=== PATIENT | female | born 2000 | race African-American/Black ===

== ENCOUNTER 2018-08-09 13:18 | Emergency (ER) | payer OTHER ==
[2018-08-09 13:32] VITALS: BP 119/70; PULSE 76; TEMP 98.3; BMI 20.1
--- NOTE | 2018-08-09 14:14 | PDOC ---
History of Present Illness - General Chief Complaint: Pain Stated Complaint: NECK PAIN Time Seen by Provider: 08/09/18 13:56 History Source: Patient Exam Limitations: No Limitations - History of Present Illness Initial Comments: 08/09/18 14:19 c/o "bump" to scalp noticed yesterday. denies trauma states after she got her hair done she felt a lump. no pmhx. Past History - Past Medical History Allergies/Adverse Reactions: Allergies Allergy/AdvReac Type Severity Reaction Status Date / Time No Known Allergies Allergy Verified 02/02/18 18:34 Home Medications: Ambulatory Orders Cholecalciferol (Vitamin D3) [Vitamin D3] 2,000 unit PO DAILY 08/09/18 Asthma: Yes - Immunization History Immunization Up to Date: Yes - Suicide/Smoking/Psychosocial Hx Smoking Status: No Smoking History: Never smoked Number of Cigarettes Smoked Daily: 0 Drug/Substance Use Hx: Yes (MARIJUANA SOMETIMES) *Physical Exam - Vital Signs Last Vital Signs Temp Pulse Resp BP Pulse Ox 98.3 F 76 17 119/70 100 08/09/18 13:30 08/09/18 13:30 08/09/18 13:30 08/09/18 13:30 08/09/18 13:30 - Physical Exam General Appearance: Yes: Nourished, Appropriately Dressed HEENT: positive: EOMI, KRISTAL Neck: positive: Supple. negative: Lymphadenopathy (R), Lymphadenopathy (L) Extremity: positive: Normal Capillary Refill, Normal Inspection, Normal Range of Motion Integumentary: positive: Normal Color, Dry, Warm, Other (posterior scalp with superficial soft tissue mobile slightly tender area no redness no drainage approximately 0.5cm ) Neurologic: positive: Fully Oriented, Alert, Normal Mood/Affect, Normal Response , Motor Strength 5/5 Medical Decision Making - Medical Decision Making 08/09/18 14:22 cc: soft tissue tender mobile lump under the scalp skin no redness no drainage will refer to derm discussed with her mother on the phone who understands the plan of care *DC/Admit/Observation/Transfer Diagnosis at time of Disposition: Sebaceous cyst - Discharge Dispostion Disposition: HOME Condition at time of disposition: Good - Referrals Referrals: Carlene Moseley MD [Primary Care Provider] - Carolina Welch MD [Staff Physician] - - Patient Instructions Additional Instructions: apply cool compresses every 2hrs for 15 minutes to the area of swelling take tylenol as needed follow with the ramp service agent if any worsening symptoms return to ER or see the ramp service agent or your president educational institution - Post Discharge Activity
== END 2018-08-09 14:27 | disposition home or self-care (01) ==
LOC: JERFT 13:18
DX: L72.3 Sebaceous cyst (principal)
CPT/HCPCS: 99281-25

== ENCOUNTER 2018-09-14 04:12 | Emergency (ER) | payer OTHER ==
[2018-09-14] MEDS ORDERED: ACETAMINOPHEN 1000 MG/100 ML VIAL (NON FORMULARY) IVPB ONE (04:49)
--- NOTE | 2018-09-14 04:58 | PDOC ---
History of Present Illness - General Chief Complaint: Pain Stated Complaint: ABDOMINAL PAIN.CONSTIPATION Time Seen by Provider: 09/14/18 04:39 History Source: Patient Exam Limitations: Clinical Condition - History of Present Illness Initial Comments: 09/14/18 04:52 Patient with history of chronic constipation for 5 months which has been intermittent of present with complain of worsening epigastric and right upper quadrant pain radiating to right flank area for 3 days now. Patient reported seeing PCP few days ago and was told she has constipation was ordered sonogram for next week with advice to increase fluid intake but could not wait due to increased pain. And also report urinary frequency and dysuria. Patient denies fever, chills, nausea, vomiting or diarrhea. Patient denies any other symptoms. Patient has not taken anything for her symptoms. 09/14/18 04:58 Timing/Duration: other (5 months) Past History - Past Medical History Allergies/Adverse Reactions: Allergies Allergy/AdvReac Type Severity Reaction Status Date / Time No Known Allergies Allergy Verified 02/02/18 18:34 Home Medications: Ambulatory Orders Cholecalciferol (Vitamin D3) [Vitamin D3] 2,000 unit PO DAILY 08/09/18 Docusate Sodium [Colace] 100 mg PO BID PRN #20 capsule 09/14/18 Polyethylene Glycol 3350 [Miralax (For Bowel Prep) -] 17 gm PO DAILY #1 bottle 09/14/18 Asthma: Yes COPD: No - Immunization History Immunization Up to Date: Yes - Suicide/Smoking/Psychosocial Hx Smoking Status: No Smoking History: Never smoked Number of Cigarettes Smoked Daily: 0 Drug/Substance Use Hx: Yes (MARIJUANA SOMETIMES) Review of Systems - Review of Systems Able to Perform ROS?: Yes Is the patient limited Czech proficient: No Constitutional: No: Chills, Fever Respiratory: No: Symptoms reported Cardiac (ROS): No: Symptoms Reported ABD/GI: Yes: See HPI, Abd. Pain w/ defecation, Blood Streaked Bowels, Constipated, Abdominal cramping (epigastric and RUQ). No: Abdominal Distended, Diarrhea, Difficulty Swallowing, Nausea, Poor Appetite, Rectal Bleeding, Vomiting, Indigestion : Yes: Dysuria, Frequency, Flank Pain (right flank). No: Burning, Hematuria, Urgency All Other Systems: Reviewed and Negative *Physical Exam - Vital Signs Last Vital Signs Temp Pulse Resp BP Pulse Ox 98.5 F 62 18 132/97 99 09/14/18 04:20 09/14/18 04:20 09/14/18 04:20 09/14/18 04:20 09/14/18 04:20 - Physical Exam Comments: 09/14/18 04:55 GENERAL: Well developed, well nourished. Awake and alert. No acute distress. HEENT: Normocephalic, atraumatic. PERRLA, EOMI. No conjunctival pallor. Sclera are non- icteric. Moist mucous membranes. Oropharynx is clear. NECK: Supple. Full ROM. No JVD. Carotid pulses 2+ and symmetric, without bruits. No thyromegaly. No lymphadenopathy. CARDIOVASCULAR: Regular rate and rhythm. No murmurs, rubs, or gallops. Distal pulses are 2+ and symmetric. PULMONARY: No evidence of respiratory distress. Lungs clear to auscultation bilaterally. No wheezing, rales or rhonchi. ABDOMINAL: Moderate tenderness to epigastric and right upper quadrant area.Soft. Non-distended. No rebound or guarding. No organomegaly. Normoactive bowel sounds. MUSCULOSKELETAL Normal range of motion at all joints. No bony deformities or tenderness. No CVA tenderness. EXTREMITIES: No cyanosis. No clubbing. No edema. No calf tenderness. SKIN: Warm and dry. Normal capillary refill. No rashes. No jaundice. NEUROLOGICAL: Alert, awake, appropriate. Gait is normal without ataxia. PSYCHIATRIC: Cooperative. Good eye contact. Appropriate mood and affect. General Appearance: Yes: Nourished, Appropriately Dressed. No: Apparent Distress ED Treatment Course - LABORATORY CBC & Chemistry Diagram: 09/14/18 05:00 09/14/18 04:46 Medical Decision Making - Medical Decision Making 09/14/18 04:57 Patient with history of chronic constipation present with complain of epigastric and right upper quadrant pain radiating to right flank area for over 5 months which has been worsened in last few days with no nausea ,vomiting or fever. Exam significant for moderate epigastric and right upper quadrant tenderness without rebound or guarding. CBC, CMP labs ordered. UA urine culture ordered. Urine hCG ordered. Abdominal CT with contrast ordered to rule out acute cholecystitis and pancreatitis. IV Tylenol 1 g given for pain. Treat based on imaging lab results 10/26/18 06:03 CBC, CMP with no acute pathology. UA, Uhcg still pending. CT after Uhcg results. Iv tylenol and maalox given for abdominal pain and report improvement. dispo home on miralax and colace for constipation if neg CT scan *DC/Admit/Observation/Transfer Diagnosis at time of Disposition: Constipated Qualifiers: Constipation type: chronic idiopathic constipation Qualified Code(s): K59.04 - Chronic idiopathic constipation Abdominal pain Qualifiers: Abdominal location: epigastric Qualified Code(s): R10.13 - Epigastric pain - Discharge Dispostion Disposition: HOME Condition at time of disposition: Stable Decision to Admit order: No - Prescriptions Prescriptions: Docusate Sodium [Colace] 100 mg PO BID PRN #20 capsule PRN Reason: Constipation Polyethylene Glycol 3350 [Miralax (For Bowel Prep) -] 17 gm PO DAILY #1 bottle - Referrals Referrals: Carlene Moseley MD [Primary Care Provider] - Sae Hester MD [Staff Physician] - - Patient Instructions Printed Discharge Instructions: Constipation, Increased Dietary Fiber May Improve Constipation Conditions With Pelvic Doug Additional Instructions: Your labs CT and ultrasound were unremarkable here You will need further evaluation by a GI doc for your chronic constipation Please follow up with Dr. Hester next week. In the meantime, increase fiber and water in your diet and take over-the- counter milk of magnesia as needed - Post Discharge Activity
[2018-09-14] MEDS ORDERED: MAG HYDROX/AL HYDROX/SIMETH 30 ML UNIT-DOSE CUP PO ONE (05:01)
[2018-09-14 05:18] LABS: BASO % 0.6 % (0-2.0); EOS % 2.1 % (0-4.5); HEMATOCRIT 40.3 % (32.4-45.2); HEMOGLOBIN 13.3 GM/dL (10.7-15.3); LYMPH % 30.9 % (8-40); MCH 29.1 pg (25.7-33.7); MEAN CELL VOLUME 88.2 fl (80-96); MEAN PLT VOLUME 10.2 fl (7.5-11.1); MONO % 8.4 % (3.8-10.2); PLATELET COUNT 138 K/MM3 (134-434); RBC 4.57 M/mm3 (3.60-5.2); RDW 13.7 % (11.6-15.6); WHITE BLOOD COUNT 5.6 K/mm3 (4.0-10.0)
--- NOTE | 2018-09-14 05:20 | PDOC ---
*Physical Exam - Vital Signs Last Vital Signs Temp Pulse Resp BP Pulse Ox 98.5 F 62 18 132/97 99 09/14/18 04:20 09/14/18 04:20 09/14/18 04:20 09/14/18 04:20 09/14/18 04:20 ED Treatment Course - LABORATORY CBC & Chemistry Diagram: 09/14/18 05:00 09/14/18 04:46 Medical Decision Making - Medical Decision Making 09/14/18 05:17 17 yo F h/o chronic constipation She presents to the ER with worsening abdominal pain (abd pain began several months ago) No fevers or chills (+) constipation On exam: epigastric and LUQ tenderness No lower abdominal tenderness Will do Labs CT Reassess Pt seen by Midlevel Provider under my direct supervision I agree with plan as outlined by Midlevel Provider *DC/Admit/Observation/Transfer Diagnosis at time of Disposition: Constipated, Abdominal pain - Discharge Dispostion Disposition: HOME Condition at time of disposition: Stable - Prescriptions Prescriptions: Docusate Sodium [Colace] 100 mg PO BID PRN #20 capsule PRN Reason: Constipation Polyethylene Glycol 3350 [Miralax (For Bowel Prep) -] 17 gm PO DAILY #1 bottle - Referrals Referrals: Carlene Moseley MD [Primary Care Provider] - Sae Hester MD [Staff Physician] - - Patient Instructions Printed Discharge Instructions: Constipation, Increased Dietary Fiber May Improve Constipation Conditions With Pelvic Doug Additional Instructions: Your laabs CT and ultrasound were unremarkable here You will need further evaluation by a GI doc for your chronic constipation Please follow up with Dr. Hester next week. In the meantime, increase fiber and water in your diet and take over-the- counter milk of magnesia as needed - Post Discharge Activity
[2018-09-14] MEDS ORDERED: ACETAMINOPHEN INJECTION 100 ML IVPB ONE (05:21)
[2018-09-14] MEDS ORDERED: MAG HYDROX/AL HYDROX/SIMETH 30 ML UNIT-DOSE CUP ONE (05:26)
[2018-09-14 05:47] LABS: ALBUMIN 4.1 g/dl (3.4-5.0); ALK PHOS 57 U/L (45-117); ANION GAP 8 MMOL/L (8-16); BILIRUBIN,TOTAL 0.6 mg/dL (0.2-1); BLOOD UREA NITROGEN 10 mg/dL (7-18); CALCIUM 8.4 mg/dL (8.5-10.1); CHLORIDE 108 mmol/L (98-107); CO2 27 mmol/L (21-32); CREATININE 0.7 mg/dL (0.55-1.3); GLUCOSE,RANDOM 78 mg/dL (74-106); POTASSIUM 3.9 mmol/L (3.5-5.1); SGOT/AST 10 U/L (15-37); SGPT/ALT 18 U/L (13-61); SODIUM 143 mmol/L (136-145); TOT PROT 7.3 g/dl (6.4-8.2)
--- NOTE | 2018-09-14 08:25 | PDOC ---
*Physical Exam - Vital Signs Last Vital Signs Temp Pulse Resp BP Pulse Ox 98.9 F 60 18 106/63 98 09/14/18 06:47 09/14/18 06:47 09/14/18 06:47 09/14/18 06:47 09/14/18 06:47 - Physical Exam General Appearance: Yes: Appropriately Dressed. No: Apparent Distress HEENT: positive: Normal Voice Neck: positive: Supple Respiratory/Chest: negative: Respiratory Distress Gastrointestinal/Abdominal: positive: Normal Bowel Sounds, Soft. negative: Tender, Distended, Guarding Integumentary: positive: Dry, Warm Neurologic: positive: Fully Oriented, Alert, Normal Mood/Affect ED Treatment Course - LABORATORY CBC & Chemistry Diagram: 09/14/18 05:00 09/14/18 04:46 - ADDITIONAL ORDERS Additional order review: Laboratory Results 09/14/18 04:46 Sodium 143 Potassium 3.9 Chloride 108 H Carbon Dioxide 27 Anion Gap 8 BUN 10 Creatinine 0.7 Creat Clearance w eGFR > 60 Random Glucose 78 Calcium 8.4 L Total Bilirubin 0.6 AST 10 L ALT 18 Alkaline Phosphatase 57 Total Protein 7.3 Albumin 4.1 09/14/18 05:00 RBC 4.57 MCV 88.2 MCHC 33.0 RDW 13.7 MPV 10.2 Neutrophils % 58.0 Lymphocytes % 30.9 Monocytes % 8.4 Eosinophils % 2.1 Basophils % 0.6 - Medications Given in the ED: ED Medications Discontinued Medications Generic Name Dose Route Start Last Admin Trade Name Freq PRN Reason Stop Dose Admin Acetaminophen 1,000 mg 09/14/18 04:49 09/14/18 05:37 Ofirmev Injection - IVPB 09/14/18 04:50 1,000 mg ONCE ONE Administration Al Hydroxide/Mg Hydroxide 30 ml 09/14/18 05:01 09/14/18 05:37 Mylanta Oral Suspension - PO 09/14/18 05:02 30 ml ONCE ONE Administration Medical Decision Making - Medical Decision Making 09/14/18 08:19 Signed out to me at 7am by JHONATHAN Andrade 16-year-old female presents with constipation and abdominal pain. Patient reports having intermittent constipation "fpr most of my life". Reports upper abdominal discomfort that is usually associated with constipation. Did have one or 2 episodes of bright red blood per rectum with bowel movements last week. No nausea, vomiting, fever or chills. States she was seen by her primary doctor several months ago for constipation and told to increase fiber and liquid in her diet. Patient states she continues to suffer from constipation despite diet modification. Has never had GI work up 09/14/18 10:[address] negative for appy but shows possible fluid collection with air fluid level measuring 4 x 4 without any connection to the bowels. Pelvic US or CT with po contrast for further evaluation recommended. Will sent for ultrasound at this time 09/14/18 13:12 US read as unremarkable. Possible fluid collection seen on CT was not visualized on ultrasound and may have represented a bowel loop per radiology. On reassessment, patient reports no pain at this time and states she never had lower abdominal pain and denies vaginal discharge, dysuria, nausea, vomiting, fever or chills. Do not feel need for further imaging at this time. Mother now in ED and states patient was seen for her symptoms by her primary doctor earlier this week who recommended GI follow-up, which patient has not done as of yet. Patient well enough to be discharged. GI referral given 09/14/18 13:15 *DC/Admit/Observation/Transfer Diagnosis at time of Disposition: Constipated Qualifiers: Constipation type: chronic idiopathic constipation Qualified Code(s): K59.04 - Chronic idiopathic constipation Abdominal pain Qualifiers: Abdominal location: epigastric Qualified Code(s): R10.13 - Epigastric pain - Discharge Dispostion Disposition: HOME Condition at time of disposition: Stable - Prescriptions Prescriptions: Docusate Sodium [Colace] 100 mg PO BID PRN #20 capsule PRN Reason: Constipation Polyethylene Glycol 3350 [Miralax (For Bowel Prep) -] 17 gm PO DAILY #1 bottle - Referrals Referrals: Carlene Moseley MD [Primary Care Provider] - Sae Hester MD [Staff Physician] - - Patient Instructions Printed Discharge Instructions: Constipation, Increased Dietary Fiber May Improve Constipation Conditions With Pelvic Doug Additional Instructions: Your laabs CT and ultrasound were unremarkable here You will need further evaluation by a GI doc for your chronic constipation Please follow up with Dr. Hester next week. In the meantime, increase fiber and water in your diet and take over-the- counter milk of magnesia as needed - Post Discharge Activity
[2018-09-14 09:47] LABS: HCG,QUALITATIVE URINE Negative
[2018-09-14 10:20] LABS: URINE APPEARANCE CLEAR; URINE BILIRUBIN NEGATIVE (<2.0 mg/dL); URINE COLOR COLORLESS; URINE GLUCOSE (UA) NEGATIVE (NEGATIVE); URINE KETONE NEGATIVE (NEGATIVE); URINE LEUK ESTERASE NEGATIVE (NEGATIVE); URINE NITRITE NEGATIVE (NEGATIVE); URINE PROTEIN NEGATIVE (NEGATIVE); URINE UROBILINOGEN NEGATIVE mg/dL (0.2-1.0)
[2018-09-14 13:47] VITALS: BP 116/80; PULSE 74; TEMP 99
== END 2018-09-14 13:47 | disposition home or self-care (01) ==
LOC: JER 04:12
PROC: 3E033NZ Introduction of Analgesics, Hypnotics, Sedatives into Peripheral Vein, Percutaneous Approach (ICD-10-PCS; principal; 2018-09-14)
DX: K59.04 Chronic idiopathic constipation (principal); R10.13 Epigastric pain
CPT/HCPCS: 36415; 74177-TC; 76856-TC; 80053; 81003; 84703; 85025; 87086; 96374; 99283-25; J0131

== ENCOUNTER 2018-09-16 22:12 | Emergency (ER) | payer OTHER ==
[2018-09-16 22:17] VITALS: BP 116/80; PULSE 67; TEMP 97.9
--- NOTE | 2018-09-16 22:22 | PDOC ---
History of Present Illness - General History Source: Patient Exam Limitations: No Limitations - History of Present Illness Initial Comments: 09/16/18 23:04 The patient is a 17 year old female with no significant PMH who presents to the emergency department with constipation for about 1 week. She reports some associated abdominal and flank pain with her constipation. The patient states that she has been seen in the ED several days ago for similar complaints. The patient states that she has been taking milk of magnesia and states that she has a loose bowel earlier today. She does endorse recent diet change. the patient denies any other symptoms. She denies any fever chills nausea, vomiting, diarrhea, or urinary symptoms. She denies any chest pain, shortness of breath, headache or dizziness. The patient denies any other complaint. PAST MEDICAL HISTORY: no significant history PAST SURGICAL HISTORY: no significant history FAMILY HISTORY: no pertinent history SOCIAL HISTORY: Pt lives with family and is employed. MEDICATIONS: reviewed ALLERGIES: As per nursing notes General: No fevers or chills, no weakness, no weight loss HEENT: No change in vision. No sore throat,. No ear pain CardioVascular: No chest pain or shortness of breath Respiratory:No cough, or wheezing. Gastrointestinal: (+)constipation,abdominal pain. no nausea, vomiting, diarrhea . No rectal bleeding Genitourinary: No dysuria, hematuria, or frequency Musculoskeletal: No joint or muscle pain or swelling Neurologic: No headache, vertigo, dizziness or loss of consciousness Psychiatric: nor depression Skin: No rashes or easy bruising Endocrine: no increased thirst or abnormal weight change Allergic: no skin or latex allergy All other systems reviewed and normal GENERAL: The patient is awake, alert, and fully oriented, in no acute distress. HEAD: Normal with no signs of trauma. EYES: Pupils equal, round and reactive to light, extraocular movements intact, sclera anicteric, conjunctiva clear. EXTREMITIES: (+)mild bilateral mid back pain. Normal range of motion, no edema. NEUROLOGICAL: Normal speech, normal gait. PSYCH: Normal mood, normal affect. SKIN: Warm, Dry, normal turgor, no rashes or lesions noted. Documentation prepared by Kelvin Jimenez, acting as medical receptionist medical assistant for Vick Lara MD. <Kelvin Jimenez - Last Filed: 09/16/18 23:03> - General History Source: Patient Exam Limitations: No Limitations - History of Present Illness Initial Comments: 09/16/18 23:06 A portion of this note was documented by scribe services under my direction. I have reviewed the details of the note, within reason, and agree with the documentation. The case summary and management plan written by me. Assessment plan: This is 17-year-old female who was in [facility] ED 2 days ago and had a complete workup for complaint of abdominal pain and constipation. Patient had ultrasound as well as a CAT scan both of which were unremarkable. Patient also had blood work that was all normal. Patient has been taking some [id number] laxatives and now comes in complaining of some back pain as well as loose stools. On my exam patient's pain appeared to be more skeletal muscle then pathology. Patient did not have any abdominal pain but only had some mid back pain. Patient urinalysis had a small amount of red blood cells however she is at the end of her menses otherwise was negative for any white cells or bacteria. Patient said she was not given a copy of her CAT scan and ultrasound so I gave her a copy of it and told her to follow up with her primary care doctor if symptoms persist otherwise to take some ibuprofen or Tylenol for the back pain. <Vick Lara I - Last Filed: 09/16/18 23:08> - General Chief Complaint: Constipation Stated Complaint: I THINK IM CONSTIPATED Time Seen by Provider: 09/16/18 22:22 Past History <Kelvin Jimenez - Last Filed: 09/16/18 23:03> - Past Medical History Asthma: Yes COPD: No - Immunization History Immunization Up to Date: Yes - Suicide/Smoking/Psychosocial Hx Smoking Status: No Smoking History: Never smoked Have you smoked in the past 12 months: No Number of Cigarettes Smoked Daily: 0 Information on smoking cessation initiated: No Hx Alcohol Use: No Drug/Substance Use Hx: No Substance Use Type: None <Vick Lara I - Last Filed: 09/16/18 23:08> - Past Medical History Allergies/Adverse Reactions: Allergies Allergy/AdvReac Type Severity Reaction Status Date / Time No Known Allergies Allergy Verified 02/02/18 18:34 Home Medications: Ambulatory Orders Cholecalciferol (Vitamin D3) [Vitamin D3] 2,000 unit PO DAILY 08/09/18 Docusate Sodium [Colace] 100 mg PO BID PRN #20 capsule 09/14/18 Polyethylene Glycol 3350 [Miralax (For Bowel Prep) -] 17 gm PO DAILY #1 bottle 09/14/18 *Physical Exam - Vital Signs Last Vital Signs Temp Pulse Resp BP Pulse Ox 97.9 F 67 14 116/80 100 09/16/18 22:13 09/16/18 22:13 09/16/18 22:13 09/16/18 22:13 09/16/18 22:13 <Kelvin Jimenez - Last Filed: 09/16/18 23:03> - Vital Signs Last Vital Signs Temp Pulse Resp BP Pulse Ox 97.9 F 67 14 116/80 100 09/16/18 22:13 09/16/18 22:13 09/16/18 22:13 09/16/18 22:13 09/16/18 22:13 <Vick Lara I - Last Filed: 09/16/18 23:08> ED Treatment Course - ADDITIONAL ORDERS Additional order review: Laboratory Results 09/16/18 22:30 Urine Color Yellow Urine Appearance Clear Urine pH 7.0 Ur Specific [place] 1.015 Urine Protein Negative Urine Glucose (UA) Negative Urine Ketones Negative Urine Blood 1+ H Urine Nitrite Negative Urine Bilirubin Negative Urine Urobilinogen 0.2 Ur Leukocyte Esterase Negative Urine RBC 5-10 Urine WBC 0-2 Ur Epithelial Cells Few Amorphous Urates 1+ Urine Bacteria None seen <Kelvin Jimenez - Last Filed: 09/16/18 23:03> *DC/Admit/Observation/Transfer <Kelvin Jimenez - Last Filed: 09/16/18 23:03> - Discharge Dispostion Decision to Admit order: No <Vick Lara I - Last Filed: 09/16/18 23:08> Diagnosis at time of Disposition: Back pain Qualifiers: Back pain location: thoracic back pain Chronicity: acute Back pain laterality: bilateral Qualified Code(s): M54.6 - Pain in thoracic spine - Discharge Dispostion Disposition: HOME Condition at time of disposition: Good - Referrals Referrals: Carlene Moseley MD [Primary Care Provider] - - Patient Instructions Additional Instructions: For the pain take Tylenol or Motrin use [id number] as prescribed on the bottle Return to the emergency department immediately with ANY new, persistent or worsening symptoms. Continue any medications as previously prescribed by your physician. You should follow up with your primary doctor as soon as possible regarding today's emergency department visit. . Please make sure your doctor reviews the results of your emergency evaluation. Thank you for coming to the Emergency Department today for your care. It was a pleasure to see you today. Please note that your evaluation is INCOMPLETE until you follow-up with your doctor. . - Post Discharge Activity
[2018-09-16 22:44] LABS: URINE APPEARANCE Clear; URINE BILIRUBIN Negative (NEGATIVE); URINE COLOR Yellow; URINE GLUCOSE (UA) Negative (NEGATIVE); URINE KETONE Negative (NEGATIVE); URINE LEUK ESTERASE Negative (NEGATIVE); URINE NITRITE Negative (NEGATIVE); URINE PROTEIN Negative (NEGATIVE); URINE UROBILINOGEN 0.2 (0.2-1.0)
[2018-09-16 22:56] LABS: AMORP URATES 1+ /hpf (NONE SEEN); EPI CELLS FEW /HPF; URINE BACTERIA NONE SEEN /hpf (NEGATIVE); URINE WBC 0-2 (0-5)
[2018-09-16] MEDS ORDERED: IBUPROFEN 600 MG TABLET (FP) PO ONE ×2 (23:37→23:38)
== END 2018-09-16 23:04 | disposition home or self-care (01) ==
LOC: FER 22:12
DX: M54.6 Pain in thoracic spine (principal)
CPT/HCPCS: 81003; 81015; 99282-25

== ENCOUNTER 2019-01-31 11:46 | Emergency (ER) | payer OTHER ==
[2019-01-31 12:33] VITALS: BP 115/77; PULSE 72; TEMP 98.3; BMI 19.7
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
== END 2019-01-31 15:44 | disposition home or self-care (01) ==
LOC: JERFT 11:46
DX: S02.2XXA Fracture of nasal bones, initial encounter for closed fracture (principal); S05.11XA Contusion of eyeball and orbital tissues, right eye, initial encounter; Y04.0XXA Assault by unarmed brawl or fight, initial encounter; Y93.89 Activity, other specified; Y92.038 Other place in apartment as the place of occurrence of the external cause; Y99.8 Other external cause status; Y07.9 Unspecified perpetrator of maltreatment and neglect
CPT/HCPCS: 70450-TC; 70486-TC; 84703; 99281-25

== ENCOUNTER 2022-03-01 11:23 | Emergency (ER) | payer OTHER ==
[2022-03-01 11:33] VITALS: BP 111/78; PULSE 87; TEMP 98.6; BMI 27.4
[2022-03-02 12:08] LABS: SARS-CoV-2 NAA Not Detected (Not Detected)
== END 2022-03-01 13:55 | disposition home or self-care (01) ==
LOC: JER 11:23
DX: R05.9 Cough, unspecified (principal)
CPT/HCPCS: 87804; 99283-25; C9803-CS; U0003; U0005

== ENCOUNTER 2022-05-18 23:57 | Emergency (ER) | payer OTHER ==
[2022-05-19 01:03] VITALS: BP 115/77; PULSE 63; TEMP 98.8; BMI 27.4
== END 2022-05-19 03:53 | disposition home or self-care (01) ==
LOC: JER 23:57
DX: L84 Corns and callosities (principal)
CPT/HCPCS: 99281-25